=== PATIENT | male | born 1960 | race Hispanic/Latino ===

== ENCOUNTER 2016-11-04 19:12 | Emergency (ER) | payer OTHER ==
[~2016-11-04] VITALS: Ht 157.5 cm; Wt 70.0 kg
[2016-11-04 19:21] VITALS: BP 154/85; PULSE 89; RESP 18; O2SAT 100
--- NOTE | 2016-11-04 19:56 | ED.REPORT ---
HPI-Dental/Mouth Prob Date of Service November 04, 2016 ED Provider: Ernie Flores DO Patient is a 56 year old male with a history of diabetes who presents to the ED complaining of left mouth pain. Associated symptoms include left side facial, nose and eye swelling. He denies shortness of breath, throat or tongue swelling. Nursing Notes Stated Complaint: DENTAL PAIN Chief Complaint: Dental Nursing Notes Reviewed: Yes Allergies: Coded Allergies: No Known Allergies (Unverified , 11/04/16) General Time Seen by MD: 19:55 Chief Complaint Mouth pain Hx Obtained From: Patient, Spouse Arrived By: Walk-in Symptom Duration: Since onset Radiation: : Face Associated with: Denies: Shortness of breath Similar Sx Previous: No Past Medical History Past Medical History Reports: Diabetes mellitus Past Surgical History none reported Smoking History Unknown if Ever Smoker Social History Other Social History: Good social support, Ambulatory Status Independent Review of Systems Ears / Nose / Throat: Reports: Mouth pain, Denies: Throat swelling, Tongue swelling Respiratory: Denies: Non-productive cough, Shortness of breath Complete sys rev & neg: except as marked. Physical Exam Initial Vital Signs Vital Signs (First) Date Time Temp Pulse Resp B/P Pulse Ox O2 Delivery O2 Flow Rate FiO2 11/04/16 19:21 36.9 89 18 154/85 100 Room Air Initial VS: Reviewed ENT: Airway patent, Mucous membranes moist tender left side, without visible abscess Neck: Atraumatic, Supple, Full range of motion General/Constitutional: Awake, Alert Head / Eyes: Normocephalic, PERRL, EOMI moderate left facial swelling up to the left nare Respiratory / Chest: Atraumatic, Breath sounds NL, Breath sounds = bilat, No respiratory distress Cardiovascular: Heart rate NL, Regular rhythm, Heart sounds NL Neurologic: Oriented X3, Speech NL, No motor deficits, No sensory deficits Abdomen: Atraumatic, Soft, Non-tender Upper Extremity / MS: Atraumatic, Full range of motion Skin: Atraumatic, Color NL, No rash, Warm, Dry Psychiatric: Affect NL, Mood NL Interpretation & Diagnostics Lab Results Interpretation Result Diagram: 11/04/16200811/04/162008 Test 11/04/16 20:09 11/04/16 20:40 White Blood Count 8.3th/mm3 (3.8-10.1) Red Blood Count 4.75mil/mm3 (4.40-5.80) Hemoglobin 13.5g/dL (13.8-17.2) Hematocrit 39.3% (41.0-50.0) Mean Corpuscular Volume 82.7fL (81-100) Mean Corpuscular Hemoglobin 28.4pg (27.0-35.0) Mean Corpuscular Hemoglobin Concent 34.4% (32.0-37.0) Red Cell Distribution Width 12.9% (12.3-15.4) Platelet Count 314bil/L (150-400) Neutrophils (%) (Auto) 68.7% (40-74) Lymphocytes (%) (Auto) 20.5% (14-46) Monocytes (%) (Auto) 8.2% (4-12) Eosinophils (%) (Auto) 1.8% (0-5) Basophils (%) (Auto) 0.7% (0-3) Sodium Level 137mEq/L (134-144) Potassium Level 4.1mEq/L (3.5-5.2) Chloride Level 98mEq/L (97-108) Carbon Dioxide Level 26mmol/L (18-29) Blood Urea Nitrogen 12mg/dL (6-24) Creatinine 0.70mg/dL (0.76-1.27) Estimat Glomerular Filtration Rate 124mL/min (>59) Glucose Level 93mg/dL (60-99) Calcium Level 9.7mg/dL (8.5-10.1) Total Bilirubin 0.3mg/dL (0.0-1.2) Aspartate Amino Transf (AST/SGOT) 10U/L (0-50) Alanine Aminotransferase (ALT/SGPT) 10U/L (0-44) Alkaline Phosphatase 96U/L (25-150) Total Protein 7.9g/dL (6.4-8.4) Albumin 4.5g/dL (3.4-5.0) Hold Weiner Top Tube Received (Received) CT Head Interpretation IMPRESSION: 1. Lucency at the root of the left maxillary canine tooth with associated bony erosion suggesting an odontogenic abscess with an overlying periosteal abscess anteriorly. Dictated by: Andrea Blankenship M.D. on 11/04/2016 at 21:09 Approved by: Andrea Blankenship M.D. on 11/04/2016 at 21:16 Interpretation / Wet Read by: Interpret - Radiologist Procedures Incision & Drainage Abscess Time: 23:11 Procedure Performed by: ED physician Consent / Setup / Site Prep: Consent from patient, Time-out performed, Hand hygiene observed Local Anesthesia: Lidocaine w epi 1% Incised Abscess with Scalpel: #11 Pus Drained: Small (yellow pus) Irrigation: Yes Post-Procedure / Complications: No complications, Condition improved, Tolerated procedure well, Patient stable Re-Eval/Medical Decision Re-Evaluation/Progress : Time of Eval: 23:10 Re-Evaluation/Progress Note: Discussed results and plan for procedure. The patient understands and agrees to the plan. All questions were addressed. Consultation : Call Returned at: 22:42 Registered Nurse Cardiovascular Icu: Agrees with eval, Agrees with plan Note: Consult with Dr. Yudith Cadena, [facility], who recommends cuting and draining the abscess. Counseled Regarding: Diagnosis, Lab results, Need for follow-up, When/why to return to ED Discharge & Departure Primary Impression: Dental abscess Additional Impression: Facial cellulitis Disposition: Home Discharge Condition All VS Reviewed: Yes Condition: Stable Patient Instructions: Dental Abscess (ED) Additional Instructions: We drained an abscess for you today. There is a chance you will have to have it drained again. You need to come back to the emergency department to have it rechecked tomorrow at 8am. Take the antibiotic, Augmentin 2 times a day for 7 days. You can take 1-2 Percocet every 6 hours as needed for pain. Do not drink alcohol or drive while taking the [place]. You also need to follow up with a dentist as soon as possible. Return to the emergency department if you develop any new or worsening symptoms including more swelling or increasing pain. Referrals: [facility] Chriss Attestation Portions of this note were transcribed by Annabella Mcmillan. I, Dr. Flores personally performed the history, physical exam and medical decision-making; I reviewed and confirmed the accuracy of the information in the transcribed note. Signed by: Chriss Ho, 11/04/16 and 2330 copies to: [facility] Ernie Flores DO November 04, 2016 19:56 Natalia Mcmillan November 04, 2016 20:28
[2016-11-04] MEDS ORDERED: Dexamethasone Inj 20 MG in 0.9% Sodium Chloride-Pha MIX 50 ML IV ONE (20:00)
[2016-11-04] MEDS ORDERED: Ampicillin-Sulbactam Inj 3,000 MG in 0.9% Sodium Chloride 100 ML IV ONE (20:00)
[2016-11-04] MEDS: HYDROmorphone 1 mg/mL Inj IVPUSH PRN ×2 (20:24→23:49)
[2016-11-04 20:28] LABS: BASOPHILS % (AUTO) 0.7 % (0-3); EOSINOPHILS % (AUTO) 1.8 % (0-5); MONOCYTES % (AUTO) 8.2 % (4-12); Mean Corpuscular Hemoglobin 28.4 pg (27.0-35.0); Mean Corpuscular Volume 82.7 fL (81-100); NEUTROPHILS % (AUTO) 68.7 % (40-74); Platelet Count 314 bil/L (150-400)
--- NOTE | 2016-11-04 21:22 | DRSVH ---
PROCEDURE: CT FACE WITH CONTRAST ([id number]) INDICATIONS: dental infection, left-sided facial swelling. TECHNIQUE: After the administration of intravenous contrast, 3.0 mm axial sections acquired from the mid-neck to the frontal sinuses, with coronal reformatting. For radiation dose reduction, the following was use d: automated exposure control. COMPARISON: None. FINDINGS: Image quality: Excellent. Soft tissues: There is left premaxillary soft tissue swelling with a thick walled peripherally enhan cing fluid collection measuring 2.7 x 1.3 cm in transverse dimension by 1.6 cm in craniocaudal dimens ion demonstrated along the anterior margin of the maxilla compatible with a periosteal abscess. There are mildly prominent left cervical lymph nodes including a level II node m easuring up to 9 mm in short axis. These are likely reactive. The globes are intact. No intraorbit al collections. Vascular: Visualized vascular structures appear patent throughout. Bony vascular foramina and canal s appear normal. Bones: There is a lucency at the root of the left maxillary canine tooth with associated bone erosio n along the anterior cortex of the maxilla. Visualized portions of the skull base and auditory canal s also appear normal. Sinuses: Paranasal sinuses demonstrate mild mucosal thickening within the ethmoid and maxillary sinu ses. Mastoid air cells are clear. IMPRESSION: 1. Lucency at the root of the left maxillary canine tooth with associated bony erosion suggesting an odontogenic abscess with an overlying periosteal abscess anteriorly. Dictated by: Andrea Blankenship M.D. on 11/04/2016 at 21:09 Approved by: Andrea Blankenship M.D. on 11/04/2016 at 21:16
[2016-11-04] MEDS ORDERED: Lidocaine 1%-Epi 1:100,000 50 mL Inj NERVEBLOCK ONE (22:50)
[2016-11-04] MEDS ORDERED: _oxyCODONE/APAP 5-325 mg Tablet PO PRN (23:30)
[2016-11-05 00:03] VITALS: BP 151/87; PULSE 89; RESP 20; O2SAT 97
== END 2016-11-05 00:04 | disposition home or self-care (01) ==
LOC: SED 19:12
DX: K04.7 Periapical abscess without sinus (principal); L03.211 Cellulitis of face; E11.9 Type 2 diabetes mellitus without complications
CPT/HCPCS: 10060; 36415; 70487; 80053; 85025; 87040; 96365; 96375; 96376; 99285; J0295; J1100; J1170; Q9967